=== PATIENT | female | born 1985 | race Caucasian/White ===

== ENCOUNTER 2019-02-19 20:11 | Emergency (ER) | payer OTHER ==
[~2019-02-19] VITALS: Ht 162.6 cm; Wt 53.1 kg
[2019-02-19 20:21] VITALS: BP 149/101
--- NOTE | 2019-02-19 20:27 | NUR ---
PT AMBULATED TO LOBBY WITH VSS
--- NOTE | 2019-02-19 21:08 | NUR ---
PT TAKEN TO BED 10
--- NOTE | 2019-02-19 21:10 | NUR ---
PT CAME INTO ER WITH C/O PAIN TO THE BACK X3 DAYS. PT DENIES TRAUMA OR INJURY. 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 PT IS ALERT AND IS ABLE TO ANSWER QUESTIONS APPROPIRATELY. PT PAIN LEVEL IS 7/10 AT THIS TIME. ERMD MADE AWARE OF STATUS, SAFETY MEASURES IMPLEMENTED.
--- NOTE | 2019-02-19 21:53 | NUR ---
Dr. Weeks examining patient.
[2019-02-19] MEDS ORDERED: KETOROLAC 60 MG/2 ML VIAL IM ONE (22:05)
--- NOTE | 2019-02-19 22:50 | NUR ---
PT RETURN FROM XRAY
[2019-02-19 23:58] VITALS: BP 135/77
--- NOTE | 2019-02-19 23:58 | NUR ---
Patient discharged with v/s stable. Written and verbal after care instructions given and explained. Patient alert, oriented and verbalized understanding of instructions. Ambulatory with steady gait. All questions addressed prior to discharge. ID band removed. Patient advised to follow up with PMD. Rx of ROBAXIN; MOTRIN given. Patient educated on indication of medication including possible reaction and side effects. Opportunity to ask questions provided and answered.
== END 2019-02-19 23:58 | disposition home or self-care (01) ==
LOC: MED 20:11
DX: M54.5 Low back pain (principal); I10 Essential (primary) hypertension; Z88.5 Allergy status to narcotic agent
CPT/HCPCS: 72100; 81002; 81025; 96372; 99283; J1885